=== PATIENT | male | born 1980 | race Two or more races ===

== ENCOUNTER 2017-12-28 11:21 | Emergency (ER) | payer MEDICAID ==
[~2017-12-28] VITALS: Ht 170.2 cm; Wt 90.7 kg
[2017-12-28] MEDS ORDERED: Morphine Sulfate 2mg/ml Inj IVP ONE (11:30)
[2017-12-28] MEDS ORDERED: ceFAZolin 1gm/50ml Premix 50 ML IV ONE (11:30)
[2017-12-28] MEDS ORDERED: Tetanus/Diptheria/Pertussis Vaccine 0.5ml Syr IM ONE (11:30)
[2017-12-28] MEDS ORDERED: Ketorolac 30mg Inj IV ONE (11:30)
[2017-12-28] MEDS ORDERED: Isovue-300 100ml vial INJ PRN (11:30)
[2017-12-28] MEDS ORDERED: Lidocaine 1% 10mg/ml/Epi 0.005mg/ml 30ml vial INJ ONE (11:30)
[2017-12-28] MEDS ORDERED: Neosporin Oint Ud Pkt TOP ONE (11:30)
[2017-12-28 11:40] VITALS: BP 144/91
[2017-12-28 12:14] LABS: BASOPHILS % (AUTO) 2.3 % (0.0-2.0); EOSINOPHILS % (AUTO) 3.3 % (0.0-3.0); HEMATOCRIT 47.3 % (42.0-52.0); HEMOGLOBIN 15.5 G/DL (14.2-18.0); LYMPHOCYTES % (AUTO) 39.8 % (20.0-45.0); MEAN CORPUSCULAR VOLUME 90 FL (80-99); MONOCYTES % (AUTO) 8.8 % (1.0-10.0); NEUTROPHILS % (AUTO) 45.9 % (45.0-75.0); PLATELET COUNT 256 K/UL (150-450); RED BLOOD COUNT 5.23 M/UL (4.70-6.10); RED CELL DISTRIBUTION WIDTH 11.7 % (11.6-14.8); WHITE BLOOD COUNT 5.3 K/UL (4.8-10.8)
--- NOTE | 2017-12-28 12:27 | Emergency Room Report ---
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 The blade (disk) broke and went into his groin and caused a cut. The broken part of the disk hit his shirt and pants before contacting with his groin. Claims the pain is 6/ 10 and burning and aching. It happened within the last half hour. Denies any hematuria. There's no nausea vomiting or diarrhea. There is no numbness down to his leg. Bleeding was minimal and contained at scene with pressure. Bruise on abdomen also. The patient's tetanus is greater than 10 years. No fevers. No dyspnea. 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 Nursing Documentation: PMH: Agreed; PSxH: Agreed Nursing Documentation-PMH Past Medical History: No Stated History Review of Systems All Other Systems: negative except mentioned in HPI Physical Exam Vital Signs Date Time Temp Pulse Resp B/P (MAP) Pulse Ox O2 Delivery O2 Flow Rate FiO2 12/28/17 11:31 98.4 91 16 144/91 98 Room Air 98.4 Sp02 EP Interpretation: reviewed, normal General Appearance: well appearing, no apparent distress, GCS 15 Head: normocephalic Eyes: bilateral eye normal inspection, bilateral eye PERRL ENT: moist mucus membranes Neck: supple Respiratory: lungs clear, normal breath sounds Cardiovascular #1: regular rate, rhythm Cardiovascular #2: 2+ radial (R) Gastrointestinal: normal inspection, normal bowel sounds, non tender, no mass, non-distended, other - laceration L mons area Genitourinary: normal inspection, penis normal, scrotum normal Musculoskeletal: back normal, gait/station normal, normal range of motion Neurologic: alert, oriented x3, grossly normal Psychiatric: mood/affect normal Skin: warm/dry, laceration - L groin area = 4 cm and open Procedures Laceration/Wound Repair Laceration/Wound Repair : Consent: Verbal Wound Location: other - groin Wound's Depth, Shape: contused tissue, other - into subcutaneouos fat Wound Length (cm): 5 Wound Explored: clean - pubic hair trimmed and kept out of wound Irrigated w/ Saline (ccs): 30 Betadine Prep?: Yes Anesthesia: Lidocaine w/ Epi Volume Anesthetic (ccs): 7 Wound Debrided: minimal Wound Repaired With: sutures Suture Size/Type: 4:0 Layer Closure?: Yes Deep Layer Suture Size/Type: 4:0, other - vicryl Sterile Dressing Applied?: Yes Patient Tolerated: Well Complications: None Medical Decision Making Diagnostic Impression: Primary Impression: Contusion of groin, left Qualified Codes: S30.1XXA - Contusion of abdominal wall, initial encounter Additional Impression: Laceration of groin Qualified Codes: S31.119A - Laceration without foreign body of abdominal wall , unspecified quadrant without penetration into peritoneal cavity, initial encounter ER Course Patient presents with contusion to his left groin area from a rock that caused a laceration. Differential includes contused laceration, intra-abdominal injury , vascular injury, vas deferens injury amongst others. He states that there was no foreign body that could've entered because it hit outside of this clothes. The patient be evaluated with labs and CT of the pelvis. In addition he'll be given Ancef and tetanus. Finally he will be given analgesia. The patient refuses morphine. The laceration needs to be repaired. Labs with normal WBC, CBC and CMP. 2-[address] with lac and hematoma L groin. Possible hernia. Layered laceration repair after CT. Improved with treatment. Patient stable for outpatient observation and treatment. Laboratory Tests Test 12/28/17 11:20 12/28/17 14:40 White Blood Count 5.3 K/UL (4.8-10.8) Red Blood Count 5.23 M/UL (4.70-6.10) Hemoglobin 15.5 G/DL (14.2-18.0) Hematocrit 47.3 % (42.0-52.0) Mean Corpuscular Volume 90 FL (80-99) Mean Corpuscular Hemoglobin 29.7 PG (27.0-31.0) Mean Corpuscular Hemoglobin Concent 32.9 G/DL (32.0-36.0) Red Cell Distribution Width 11.7 % (11.6-14.8) Platelet Count 256 K/UL (150-450) Mean Platelet Volume 9.5 FL (6.5-10.1) Neutrophils (%) (Auto) 45.9 % (45.0-75.0) Lymphocytes (%) (Auto) 39.8 % (20.0-45.0) Monocytes (%) (Auto) 8.8 % (1.0-10.0) Eosinophils (%) (Auto) 3.3 % (0.0-3.0) H Basophils (%) (Auto) 2.3 % (0.0-2.0) H Prothrombin Time 10.3 SEC (9.30-11.50) Prothrombin Time INR 1.0 (0.9-1.1) PTT 26 SEC (23-33) Sodium Level 139 MMOL/L (136-145) Potassium Level 3.3 MMOL/L (3.5-5.1) L Chloride Level 102 MMOL/L (98-107) Carbon Dioxide Level 26 MMOL/L (21-32) Anion Gap 11 mmol/L (5-15) Blood Urea Nitrogen 8 mg/dL (7-18) Creatinine 0.8 MG/DL (0.55-1.30) Estimate Glomerular Filtration Rate > 60 mL/min (>60) Glucose Level 110 MG/DL (74-106) H Calcium Level 9.3 MG/DL (8.5-10.1) Total Bilirubin 0.3 MG/DL (0.2-1.0) Aspartate Amino Transferase (AST) 24 U/L (15-37) Alanine Aminotransferase (ALT) 39 U/L (12-78) Alkaline Phosphatase 100 U/L (46-116) Total Protein 8.3 G/DL (6.4-8.2) H Albumin 4.0 G/DL (3.4-5.0) Globulin 4.3 g/dL Albumin/Globulin Ratio 0.9 (1.0-2.7) L Urine Color Pale yellow Urine Appearance Turbid Urine pH 9 (4.5-8.0) Urine Specific [place] 1.015 (1.005-1.035) Urine Protein Negative (NEGATIVE) Urine Glucose (UA) Negative (NEGATIVE) Urine Ketones Negative (NEGATIVE) Urine Occult Blood 1+ (NEGATIVE) H Urine Nitrite Negative (NEGATIVE) Urine Bilirubin Negative (NEGATIVE) Urine Urobilinogen Normal MG/DL (0.0-1.0) Urine Leukocyte Esterase Negative (NEGATIVE) Urine RBC 2-4 /HPF (0 - 0) H Urine WBC 0 /HPF (0 - 0) Urine Squamous Epithelial Cells None /LPF (NONE/OCC) Urine Amorphous Sediment Many /LPF (NONE) H Urine Bacteria Few /HPF (NONE) CT/MRI/US Diagnostic Results CT/MRI/US Diagnostic Results : Imaging Test Ordered: pelvis Impression IMPRESSION: Subcutaneous contusion and laceration in the region of the left groin. No large hematoma identified. Fullness in the region of the left inguinal canal which could be associated with an inguinal hernia. Correlate clinically. Calcifications in the mesentery, nonspecific. Old granulomatous disease suspected. Last Vital Signs Date Time Temp Pulse Resp B/P (MAP) Pulse Ox O2 Delivery O2 Flow Rate FiO2 12/28/17 15:30 98.4 85 16 125/82 98 Room Air 98.4 Status: improved Disposition: HOME, SELF-CARE Condition: Improved Scripts Tramadol Hcl* (ULTRAM*) 50 Mg Tablet 50 MG ORAL Q6H PRN for For Pain, #8 TAB 0 Refills Prov: Elías Cannon M.D. 12/28/17 Ibuprofen* (MOTRIN*) 600 Mg Tablet 600 MG ORAL Q6H PRN for For Pain, #20 TAB Prov: Elías Cannon M.D. 12/28/17 Cephalexin* (KEFLEX*) 500 Mg Capsule 500 MG ORAL EVERY 6 HOURS, #28 CAP Prov: Elías Cannon M.D. 12/28/17 Referrals: NOT CHOSEN RANDY/,REFERRING (PCP) Elías Cannon M.D. Dec 28, 2017 12:27
[2017-12-28 12:30] LABS: ALANINE AMINOTRANSFERASE 39 U/L (12-78); ALBUMIN/GLOBULIN RATIO 0.9 (1.0-2.7); ALKALINE PHOSPHATASE 100 U/L (46-116); ANION GAP 11 mmol/L (5-15); ASPARTATE AMINO TRANSFERASE 24 U/L (15-37); BILIRUBIN,TOTAL 0.3 MG/DL (0.2-1.0); BLOOD UREA NITROGEN 8 mg/dL (7-18); CALCIUM 9.3 MG/DL (8.5-10.1); CARBON DIOXIDE 26 MMOL/L (21-32); CHLORIDE 102 MMOL/L (98-107); CREATININE 0.8 MG/DL (0.55-1.30); POTASSIUM 3.3 MMOL/L (3.5-5.1); SODIUM 139 MMOL/L (136-145)
[2017-12-28] MEDS ORDERED: ceFAZolin sod 1 GM in NS 55 ML IVP SCH (12:45)
[2017-12-28 13:30] VITALS: BP 140/91
--- NOTE | 2017-12-28 13:59 | Diagnostic Imaging Report ---
Indication: Abdominal pain Technique: Continuous helical transaxial imaging of the abdomen and pelvis was obtained from the lung bases to the pubic symphysis during intravenous contrast administration. Coronal 2-D reformats were also obtained. Study obtained in a Siemens sensation [address] Automatic Exposure Control was utilized. Total Dose length Product (DLP): 1016.[address] Dose Index Volume (CTDIvol): 17.25 mGy Comparison: None Findings: There are mesenteric calcifications in the lower abdomen toward the right. These are nonspecific but may be due to old granulomatous disease. In the left groin anterior to the inguinal canal there is both linear and somewhat nodular soft tissue stranding and slight thickening of the skin consistent with contusion injury from recent trauma. Laceration of the skin also noted. There is no large hematoma identified. Some of the nodularity is due to presence of lymph nodes. The left inguinal canal shows some soft tissue fullness and is larger than the right side. The findings suggestive of an inguinal hernia. Correlate clinically. Few diverticula noted in the colon. There is no evidence of diverticulitis. The appendix is seen and appears normal. Urinary bladder is nondistended. No free fluid or free air identified. There is a small cyst in the left kidney. There is no hydronephrosis demonstrated. The gallbladder, liver, spleen, pancreas appear normal. The lung bases are clear IMPRESSION: Subcutaneous contusion and laceration in the region of the left groin. No large hematoma identified. Fullness in the region of the left inguinal canal which could be associated with an inguinal hernia. Correlate clinically. Calcifications in the mesentery, nonspecific. Old granulomatous disease suspected. The CT scanner at [facility] is accredited by the [employer] and the scans are performed using dose optimization techniques as appropriate to a performed exam including Automatic Exposure control.
[2017-12-28 14:54] LABS: APPEARANCE,URINE TURBID; BILIRUBIN, URINE NEGATIVE (NEGATIVE); COLOR,URINE PALE YELLOW; GLUCOSE, URINE (UA) NEGATIVE (NEGATIVE); KETONES,URINE NEGATIVE (NEGATIVE); LEUKOCYTE ESTERASE ,URINE NEGATIVE (NEGATIVE); NITRITE,URINE NEGATIVE (NEGATIVE); PH,URINE 9 (4.5-8.0); PROTEIN,URINE NEGATIVE (NEGATIVE); UROBILINOGEN,URINE NORMAL MG/DL (0.0-1.0)
[2017-12-28] MEDS ORDERED: CEPHALEXIN500 MG ORAL (14:56)
[2017-12-28] MEDS ORDERED: IBUPROFEN600 MG ORAL (14:56)
[2017-12-28] MEDS ORDERED: TRAMADOL HCL50 MG ORAL (14:56)
[2017-12-28 15:29] VITALS: BP 125/82
[2017-12-28 15:30] VITALS: BP 125/82
== END 2017-12-28 15:35 | disposition home or self-care (01) ==
LOC: EMR 11:40
DX: S31.114A Laceration without foreign body of abdominal wall, left lower quadrant without penetration into peritoneal cavity, initial encounter (principal); W27.8XXA Contact with other nonpowered hand tool, initial encounter; Y92.009 Unspecified place in unspecified non-institutional (private) residence as the place of occurrence of the external cause; Z23 Encounter for immunization
CPT/HCPCS: 12032; 36415; 74177; 80053; 81001; 85025; 85610; 85730; 90471; 90715; 96365; 96375; 99284; J0690; J1885; Q9967; Z7502; J2405